=== PATIENT | female | born 2000 | race Caucasian/White ===

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

== ENCOUNTER 2022-03-12 13:36 | Emergency (ER) | payer OTHER, SELFPAY ==
[2022-03-12 14:02] VITALS: BP 124/67; PULSE 86; RESP 18; TEMP 36.5; O2SAT 100
--- NOTE | 2022-03-12 14:16 | ECG_ITS ---
Measurements Intervals [place] Rate: 94 P: 68 ND: 129 QRS: 34 QRSD: 82 T: 22 QT: 332 QTc: 417 Interpretive Statements SINUS RHYTHM RSR' IN V1 OR V2, PROBABLY NORMAL VARIANT BORDERLINE ST-T WAVE ABNORMALITY- INFERIOR LEADS BASELINE ARTIFACT- II, III, AVF BORDERLINE ECG Electronically Signed On 03-12-2022 18:23:38 CDT by Elliott Sen D.O.
[2022-03-12 14:42] LABS: Basophils Absolute Auto 0.1 K/mm3 (0.0-0.1); Basophils Percent Auto 0.5 % (0.2-1.2); Eosinophils Absolute Auto 0.2 K/mm3 (0-0.3); Eosinophils Percent Auto 1.9 % (0-4.4); Hematocrit 41.2 % (37.0-47.0); Hemoglobin 13.6 g/dL (12.0-15.0); Immature Granulocyte Absolute 0.02 K/mm3 (0.00-0.031); Immature Granulocyte Percent A 0.2 % (0-0.5); Lymphocytes Absolute Auto 2.58 K/mm3 (0.9-3.2); Mean Corpuscular Hemoglobin 28.9 pg (26-34); Mean Corpuscular Volume 87.7 fl (80-100); Mean Platelet Volume 10.1 fl (7.4-10.4); Monocytes Absolute Auto 1.1 K/mm3 (0.1-0.6); Monocytes Percent Auto 10.3 % (2.6-8.5); Neutrophils Absolute Auto 6.4 K/mm3 (1.3-6.7); Neutrophils Percent Auto 62.1 % (45.5-73.1); Platelet Count Result 302 k/mm3 (150-375); Red Cell Distribution Width 12.8 % (11.5-14.5); White Blood Count 10.3 K/mm3 (4.5-10.0)
--- NOTE | 2022-03-12 14:43 | ED.DIZZY ---
HPI - Dizziness General Chief Complaint: Dizziness <MIYA Amaya Last Filed: 03/12/22 16:35> Stated Complaint: dizzy <MIYA Amaya Last Filed: 03/12/22 16:35> Time Seen by Provider: 03/12/22 14:11 <MIYA mAaya Last Filed: 03/12/22 16:35> History of Present Illness HPI Narrative: Patient is a 21-year-old female with a history of eustachian tube dysfunction here for evaluation of dizziness over the past day. Patient states the dizziness is positional, and is worse when she turns her head. She also notes that she has had diffuse body aches, some ear fullness and discomfort, and also feels like her heart is racing. Denies chest pain, shortness of breath, syncope, fevers, chills. She does take oral contraceptives. She took a home COVID test that was negative. Notes that her symptoms were worse at work when she was working in the heat. <MIYA Amaya Last Filed: 03/12/22 16:35> Related Data Home Medications: Home Medications Medication Instructions Recorded Confirmed etonogestrel 68 mg subdermal 1 implant subdermal ONCE 08/26/21 02/03/22 implant (Nexplanon) <MIYA Amaya Last Filed: 03/12/22 16:35> Allergies/Adverse Reactions: Allergies Allergy/AdvReac Type Severity Reaction Status Date / Time No Known Allergies Allergy Verified 02/03/22 10:59 <MIYA Amaya Last Filed: 03/12/22 16:35> Review of Systems Review of Systems: Gen: Reports body aches. Denies fevers or chills Eyes: Reports ear pain. Denies eye pain or visual change ENT: Denies congestion Respiratory: Denies shortness of breath or cough CV: Denies chest pain or palpitations GI: Denies abdominal pain nausea, emesis or diarrhea : denies burning, urgency, frequency or hematuria Musculoskeletal: Denies back pain or muscle pain Neuro: Reports dizziness. Denies numbness, tingling, weakness or focal weakness Skin: Denies rash Except as documented, all other systems reviewed and negative <Lizbeth Mcpherson PA-C - Last Filed: 03/12/22 16:35> [facility] Past Medical History Medical History: Medical History Anemia <Lizbeth Mcpherson PA-C - Last Filed: 03/12/22 16:35> Social History Social History: Social History Smoking status: Never smoker Alcohol intake: never Substance use: never Substance use type: does not use Spiritual care concerns: No <Lizbeth Mcpherson PA-C - Last Filed: 03/12/22 16:35> Exam Narrative: APPEARANCE: Well appearing, no pain in distress, well-nourished. Head: Normocephalic and atraumatic. EYES: Fatiguable horizontal nystagmus. PERRLA/EOMI, conjunctivae clear NOSE: No nasal drainage EARS: External ear normal in appearance THROAT: Oropharynx is clear. Mucous membranes are moist. NECK: Supple. No adenopathy, no masses. RESPIRATORY: Airway patent, respirations nonlabored. Clear to auscultation bilaterally, no rales, rhonchi, wheezing. CARDIOVASCULAR: Tachycardic. Regular rhythm without murmurs, rubs, or gallops. ABDOMINAL: Normoactive bowel sounds. Soft, nontender, nondistended. No rebound tenderness or guarding. MUSCULOSKELETAL: Extremities are warm and well-perfused. Moves all extremities well. No edema. NEURO: Finger to nose normal. Negative [place]. Becomes symptomatic with position changes. Normal speech. No focal neurologic deficits. SKIN: Skin is warm and dry. No rashes. PSYCHIATRIC: Normal affect/mood. <Lizbeth Mcpherson PA-C - Last Filed: 03/12/22 16:35> Course [employer] ENGINEER/PA Physician Supervision I did not see this patient but the care plan was discussed with me, labs reviewed. I agree with the documentation as above <Daniel Lynch MD - Last Filed: 07/02/22 17:08> Vital Signs Vital signs: Vital Signs Temperatu
[2022-03-12 14:53] LABS: Alanine Aminotransferase 77 U/L (6-35); Albumin Level 4.6 g/dL (3.7-5.6); Alkaline Phosphatase 53 U/L (45-116); Anion Gap 5 mmol/L (8-16); Aspartate Amino Transferase 41 U/L (14-36); Bilirubin,Total 0.4 mg/dL (0.2-1.3); Blood Urea Nitrogen 11 mg/dL (8-21); Calcium 8.9 mg/dL (8.9-10.7); Carbon Dioxide 27 mmol/L (22-30); Chloride 104 mmol/L (98-107); Estimated CRCL calculation 92 ml/min; Estimated Glomerular Filt Rate > 60; Glucose 87 mg/dL (65-110); Potassium 4.1 mmol/L (3.4-5.0); Sodium 136 mmol/L (134-143)
[2022-03-12 15:18] LABS: SARS-CoV-2 RNA PCR Negative
[2022-03-12 15:52] VITALS: BP 103/78; PULSE 80; RESP 18; O2SAT 99
[2022-03-12] MEDS: ONDANSETRON HCL ODT 4 MG TABLET PO (16:11)
[2022-03-12] MEDS: MECLIZINE HCL 25 MG TABLET PO (16:11)
== END 2022-03-12 16:27 | disposition home or self-care (01) ==
PROVIDERS: Physician Assistant; Emergency Provider Emergency Medicine
DX: R42 Dizziness and giddiness (principal); Z20.822 Contact with and (suspected) exposure to COVID-19
CPT/HCPCS: 36415; 80053; 85025; 85380; 93005; 99283; A9270; C9803; U0003; U0005

== ENCOUNTER 2022-04-12 09:57 | Outpatient (CLI) | payer OTHER, SELFPAY | END 2022-04-12 09:58 | disposition home or self-care (01) | LOC: ANHAUDIO 09:59 | PROVIDERS: PCP Otolaryngology; Visit Provider Otolaryngology | DX: H93.13 Tinnitus, bilateral (principal); H91.93 Unspecified hearing loss, bilateral; H93.8X3 Other specified disorders of ear, bilateral | CPT/HCPCS: 92552; 92556; 92567 ==

== ENCOUNTER 2022-06-13 07:20 | Outpatient (CLI) | payer OTHER, SELFPAY ==
--- NOTE | ~2022-06-13 | CT_ITS ---
EXAMINATION: CT sinus wo con DATE: 06/13/2022 07:36 INDICATION: Sinusitis. Facial pressure. TECHNIQUE: Computed tomography (CT) of the paranasal sinuses was performed without intravenous contra st. The dose-length product was 305.77 mGy-cm. Automated exposure control and iterative reconstructio n technique were employed. COMPARISON: None FINDINGS: No significant mucosal thickening. No air-fluid levels. Leftward nasal septal deviation. Os tiomeatal units are patent. There is a right-sided serene bullosa. Mastoid air cells are pneumatized. IMPRESSION: 1. No significant sinus disease. Reviewed, dictated and finalized at location A.
== END 2022-06-13 07:21 | disposition home or self-care (01) ==
PROVIDERS: Visit Provider Otolaryngology
DX: H93.8X3 Other specified disorders of ear, bilateral (principal); J32.0 Chronic maxillary sinusitis; J32.9 Chronic sinusitis, unspecified; R44.8 Other symptoms and signs involving general sensations and perceptions
CPT/HCPCS: 70486

== ENCOUNTER 2024-12-24 09:56 | Outpatient (CLI) | payer MEDICAID, SELFPAY ==
--- OUTSIDE RECORDS SUMMARY | 2024-12-24 10:47 | XMS_ITS | Encounter Summary ---
Author Organization [facility] Address [address] [place] [id number] Care Team Providers Care Athletic Trainer Name Role Phone Eduin Land VENEER DRIER Primary Care Provider Unavail able Eduin Land VENEER DRIER Primary Care Provider Unavail able dEuin Land VENEER DRIER Primary Care Provider Unavail able Ayaz Velazquez MD Primary Care Provider [phone] Fede Wagner MD Primary Care Provider [phone] None, Provider MD Primary Care Provider Unavaila ble Encounter Details Date Type Department Care Team (Late st Contact Info) Description 01/09/2014 Abstract [facility] CONVERSION [id number] [place] [id number] , Generic Conversion, Social History Tobacco Use Types Packs/Day Years Used Date Smoking Tobacco: Never Assessed Comments Unknown Sex and Gender Information Value Date Recorded Sex Assigned at Not on file Legal Sex Female 8:11 PM CDT Gender Identity Not on file Sexual Orientation Not on file documented as of this encounter Plan of Treatment Not on file documented as of this encounter Visit Diagnoses Not on filedocumented in this encounter Additional Health Concerns Infection Onset Date Last Indicated Resolved Time COVID-19 Rule Out 07/22/2021 07/22/2021 07/22/2021 1:09 PM SPEED RUNNER COVID-19 Rule Out 07/29/2021 07/29/2021 07/29/2021 2:01 PM SPEED RUNNER COVID-19 Rule Out 08/16/2021 08/16/2021 08/16/2021 2:12 PM SPEED RUNNER COVID-19 Rule Out 09/19/2021 09/19/2021 09/19/2021 9:37 AM SPEED RUNNER COVID-19 Rule Out 09/20/2021 09/20/2021 09/21/2021 3:44 AM SPEED RUNNER COVID-19 Confirmed 09/20/2021 09/20/2021 2 12:34 AM SPEED RUNNER documented as of this encounter Care Teams Athletic Trainer Relationship Specialty Start Date End Date Eduin Land, VENEER DRIER PCP - General 04/03/15 05/02/21 Eduin Land, VENEER DRIER PCP - General 03/12/15 04/02/15 Eduin Land, VENEER DRIER PCP - General 02/26/15 03/11/15 Ayaz Velazquez MD [address] [place] [address] PCP - General PEDIATRICS 05/03/21 09/18/21 Fede Wagner MD [address] [place] [id number] PCP - General FAMILY PRACTICE 09/19/21 12/06/21 None, MD Bahman PCP - General 12/07/21 documented as of this encounter
--- OUTSIDE RECORDS SUMMARY | 2024-12-24 10:47 | XMS_ITS | Data Portability ---
Author Organization [facility] [place] [facility], [id number] Address [address] [place] [address] Assessment No assessment recorded. Plan of Treatment Reminders Order Date Submit Date Provider Last Modified By Organization Details Last Modified Time Details Appointments MH - INITIAL MANUFACTURING BUSINESS ANALYST 2024 10:15A Susan LÓPEZ PMHNP Not available Not available Not available ANNUAL- EST 15 2025 08:15A M VERONICA RODRÍGUEZ WHNP Not available Not available Not available Lab patrice wet prep 2024 025 toby [id number] Kayleigh Orta, [address], [place], [address], 12/04/2024 10:59:01 wet mount panel, vaginal fluid 2024 025 toby [id number] Kayleigh Orta, [address], [place], [address], 12/04/2024 10:59:01 Referral behaviora [facility] referral 2024 025 [email or web address] Not available 12/04/2024 10:59:01 gastroent erologist referral 2024 025 [facility], [address], [address], [place], [address], 12/04/2024 18:46:22 Procedures None recorded. Surgeries None recorded. Imaging None recorded. Medication Orders None recorded. Patient TargetsNo targets recorded. Patient InstructionsNo instructions recorded. Reason for Referral [place] Referral for Left lower quadrant pain Referring Physician: Veronica Rodríguez GAMES DEALER, Encounter Date: 12/04/2024 Behavioral Health Referral f or Anxiety Referring Physician: Veronica Rodríguez GAMES DEALER, Encounter Date: 12/04/2024 Results Created Date Observation Date Name Description Value Unit Range Abnormal Flag Note LastModifiedBy Organization Detail LastModifiedTime 12/05/1912/04/2024 wet mount panel , vagin al fluid Unknown Analyte <20% Not Available [id number] [place], [address], 12/04/2024 10:56:51 12/05/19 25 12/04/2024 wet mount panel , vagin al fluid Unknown Analyte negati ve Not Available [id number], [place], [address], 12/04/2024 10:56:51 12/05/19 25 12/04/2024 wet mount panel , vagin al fluid Unknown Analyte Negati ve Not Available [id number], [address], 12/04/2024 10:56:51 12/05/19 25 12/04/2024 wet mount panel , vagin al fluid Unknown Analyte Negati ve Not Available [id number], [address], 12/04/2024 10:56:51 12/05/19 25 12/04/2024 wet mount panel , vagin al fluid Unknown Analyte Negati ve Not Available [id number], [address], 12/04/2024 10:56:51 12/05/19 25 12/04/2024 wet mount panel , vagin al fluid Unknown Analyte Rare Not Available [address], [place], [address], 12/04/2024 10:56:51 12/05/19 25 12/04/2024 wet mount panel , vagin al fluid Unknown Analyte Abunda nt Rods Not Available [address], [place], [address], 12/04/2024 10:56:51 12/05/19 25 12/04/2024 wet mount panel , vagin al fluid Unknown Analyte Negati ve Not Available [address] [place], [address], 12/04/2024 10:56:51 12/05/19 25 12/04/2024 wet mount panel , vagin al fluid Unknown Analyte Negati ve Not Available [address] [place] [place], [address], 12/04/2024 10:56:51 12/05/19 25 12/04/2024 patrice wet prep Hyphae Absent Not Available [address], [place], [address], 12/04/2024 10:56:50 Result Notes None recorded. Problems Name Problem SNOMED Code Status Onset Date Resolution Date Notes Provider Name and Address Organization Details Recorded Time Transfusio n of blood product Active 12/27 w/ oophorecto silvia Diggsya Michaela [facility] 12:20:29 Anxiety 11619077 Active 2024 Suzi mar [facility] 15:33:23 Left lower quadrant pain 217960914 Active 2024 VERONICA RODRIGUEZ [address], [place], [place], [address], [facility] 5 10:00:57 Left lower quadrant pain 344159494 Active 2024 VERONICA RODRIGUEZ [address], [place], [place], [address], [facility] 5 10:01:12 Vaginal discharge 090758505 Active 2024 VERONICA RODRIGUEZ [address], [place], [place], [address], [facility] 10:56:45 Problem Notes None recorded. Procedures Surgical History Date Name Laterality Status Provider Name and Address Organization Details Recorded Time 06/07/20 23 Date of Last Pap Smear completed Suzi Hope [facility] 12/02/2024 15:35:44 04/11/20 22 Removal of adenoids completed Suzi Hope [facility] 12/02/2024 15:40:44 04/11/20 22 tonsillectomy completed Suzi Hope [facility] 12/02/2024 15:41:37 09/11/19 22 extraction of wisdom tooth completed Suzi Hope [facility] 12/02/2024 15:42:01 01/03/20 18 Oophorectomy completed Herlinda Jennings [facility] 12/03/2024 12:22:23 [facility] 12/04/2024 09:13:06 Oophorectomy completed Suzi Hope [facility] 12/04/2024 09:13:06 Ovarian Cystectomy completed Suzi Hope [facility] 12/04/2024 09:13:06 Imaging Results None recorded. Procedure Notes None recorded. Medical Equipment None Reported. Allergies No known drug allergies Medications Name Sig Start Date Stop Date Status Note LastModified by Organization Details LastModified Time fluoxetine 10 mg capsule Take 1 capsule every day by oral route. active Not Available Not Available No t Available Probiotic active Not Available Not Jennifer ilable Not Available Vitals Date Recorded Body height Body mass index (BMI) Body weight Systolic blood pressure Diastolic blood pressure Provider Name and Address Organization Details Last Updated DateTime 12/04/2024 167.64 cm 17.6 kg/m2 87317.57 g 102 mm[Hg] 62 mm[Hg] Suzi Hope [facility] 09:17:02 Social History Question Answer Notes LastModified by Organizat ion Details LastModified Time Tobacco Smoking Status Never Smoker Suzi Hope [facility] [place] [place] [facility] 12/02/2024 15:40:06 Do You Have An Advance Directive? No [email or web address] Information not available 12/04/2024 What Is Your Level Of Alcohol Consumption? Occasional [email or web address] Information not available 12/02/2024 How Many Times Per Week Do You Consume Alcohol? 1-2 Times Per Week [email or web address] Information not available 12/02/2024 What Is Your Level Of Caffeine Consumption? Moderate [email or web address] Information not available 12/04/2024 Are You Currently Employed? No [email or web address] Information not available 12/04/2024 What Type Of Diet Are You Following? SPECIFIC [email or web address] Information not available 12/04/2024 What Is Your Relationship Status? Single [email or web address] Information not available 12/02/2024 Do You Use Any Illicit Or Recreational Drugs? Yes Marijuanna [email or web address] Information not available 12/02/2024 Sex: Unknown Functional Status None recorded. Mental Status None recorded. Family History Relationship Description Onset Age of this Age Resolved Age Notes LastModified by Organization Details LastModified Time Paternal Grandfather Malignant tumor of esophagus [email or web address] Not available 2024 09:12:53 Unspecified Relation No current problems or disability [email or web address] Not available 12/04 09:12:53 Medical History Condition Response Psych- Anxiety Disorder Y Hematology- Anemia Y Psych- Depression Y GI- Irritable Bowel Syndrome Y Gynecological History Statement/Question Response Flow Moderate Frequency of Cycle (Q days) 6 Sexually Active? Y Menses Monthly Y Current Control Method: None Duration of Flow (days) 4-5 Date of Last Pap Smear 06/07/2023 Age at Menarche 13 Current Control Method None Obstetrics History GPAL:G 0 P 0 0 0 0 Type Value Multiple Births 0 Full Term 0 Induced 0 Spontaneous 0 Premature 0 Living 0 Ectopics 0 Total 0 Immunizations Vaccine Type Date Status Note Provider Nam e and Address Organization Details Recorded Time Tdap 09/11/2013 [facility] 12/02/2024 15:34:08 Past Encounters Encounter ID Performer Location Encounter Start Date Encounter Closed Date Diagnosis/Indication Diagnosis SNOMED-CT Code Diagnosis ICD10 Code Diagnosis Note [id number] VERONICA RODRIGUEZ [id number] [facility] [place] [address] [facility] [place] [address] 12/04/2024 09:04:42 12/04/2024 10:05:26 Gynecologic examination 91641204 Z01.411 -f/u 1 year for annual SOCIAL SERVICES DIRECTOR exam Anxiety 89265696 F41.9 -f/u with Marixa Left lower quadrant pain 022614201 R10.32 K59.00 R19.7 R19.5 -we will send referral for GI specialist Vaginal discharge 502034 006 N89.8 -normal wet mount/patrice Depression screening 171 352790 Z13.31 -score 5 Health Concerns Section Related Observation LastModified by Organization Detai ls LastModified Time None Recorded Concern Status LastModified by Organization Details LastModified Time None Recorded Advance Directives Directive N: Payers Encounter Date Sequence Insurance Name Policy Number Policy Meyer Covered Member ID Meyer Member ID Guarantor Name 12/04/2024 1 [place] [facility] Sharamine Nagy [id number] Sharmaine Nagy Notes Date Note Type Note Provider Name and Address Organization Details Recorded Time 12/04/2024 text/html [facility] Annual Well-Women Visit Age 21-29Reported bypatient.Current Medical History:reviewed and documented Relevant Family History:no family history of breast cancer Last Pap smear:up-to-date Contraceptive Method:satisfied with current method; contraceptive method: none; is in same sex relationship Sexually Active:Yes: same partner STI Screen:declines STI testing Menstrual cycle:usually has a 35+ day cycle. did have a 50 day cycle last fall. feels like last 2 cycles have been more regular. Vagina:has noticed more vaginal discharge-denies itching, irritation, or foul odor. would like swab to check for bv/yeast. declines std testing.Notes:c/o 8mo of abdominal pain-mostly LLQ/LUQ. states she had episode of 5 days of vomiting 8mo ago-thought it was because she was eating too much fiber. switched diet to pescetarian diet but has not noticed any change in abd pain. hx of diarrhea/constipati on-denies blood in stool but has noticed mucus. also c/o unexplained weight loss of 15-25lbs in the last 8mo. called GI office but was told she needed a referral. hx of anxiety/depression- has not seen anyone for counseling and has never taken any medication for either. -sasha RODRÍGUEZ [facility] [address], [place], [address], [facility] 12/04/2024 11:00:02 OBGyn Episode No OBEpisode recorded.
--- OUTSIDE RECORDS SUMMARY | 2024-12-24 10:47 | XMS_ITS | Clinical Summary ---
Author Organization [facility] Address [facility] [place] [address] Care Team Providers Care Machine Shop Worker Name Role Phone None, Provider MD Primary Care Provider Unavaila ble Allergies No known active allergies Medications cephALEXin 500 MG capsule 2 Active triamcinolone 0.1 % ointment 2 Active fluticasone propionate 50 MCG/ACT nasal sprayIndications: Right ear pain 2 sprays by Each Nostril route daily. 16 g 2 Active Multiple Vitamins-Minerals (HM MULTIVITAMIN ADULT GUMMY OR) Acti ve Active Problems No known active problems Social History Tobacco Use Types Packs/Day Years Used Date Smoking Tobacco: Never Smokeless Tobacco: Never Alcohol Use Standard Drinks/Week Comments Never 0 (1 standard drink = 0.6 oz pur e alcohol) Comments Unknown Sex and Gender Information Value Date Recorded Sex Assigned at Not on file Legal Sex Female 8:11 PM CDT Gender Identity Not on file Sexual Orientation Not on file Last Filed Vital Signs Vital Sign Reading Time Taken Comments Blood Pressure 125/77 05/05/2022 11:52 AM CDT Pulse 84 05/05/2022 11:52 AM CDT Temperature 36.9 C (98.5 F) 05/05/2022 10:44 AM CDT Respiratory Rate 16 05/05/2022 11:52 AM CDT Oxygen Saturation 100% 05/05/2022 10:44 AM CDT Inhaled Oxygen Concentration - - Weight 61.2 kg (135 lb) 05/05/2022 10:44 AM CDT Height 167.6 cm (5' 6 ) 05/05/2022 10:44 AM CDT Body Mass Index 21.79 05/05/2022 10:44 AM CDT Plan of Treatment Health Maintenance Due Date Last Done Comments Cervical Cancer Screening Pap Smear (Age 21 to 29) Every 3 Years 2002 Cervical Cancer Screening 2002 Annual Physical 2005 Meningococcal B Vaccine (1 of 2 - Standard) 2018 Hepatitis C 2020 COVID-19 Vaccine (3 - season) 2024 07/07/2021, 06/16/2021 DTaP, Tdap and Td Vaccines (7 - Td or Tdap) 06/07/2024 06/07/2014, 05/30/2007, 09/22/2003, Additional history exists Hepatitis B Vaccines Completed 01/03/2003, 01/03/2003, 2002, Additional history exists Pneumococcal Vaccine: Pediatrics (0 to 5 Years) and At-Risk Patients (6 to 49 Years) Aged Out 01/03/2003, 2002 No longer eligibl e based on patient's age to complete this topic HPV Vaccines Completed 10/11/2018, 03/25/2015 Meningococcal Vaccine Completed 10/11/2018, 014 RSV Immunizations Under 20 Months Aged Out No longer eligible based on patient's age to complete this topic Insurance [employer] Care Teams Machine Shop Worker Relationship Specialty Start Date End Date None, Provider, PCP - General 12/07/21
--- OUTSIDE RECORDS SUMMARY | 2024-12-24 10:47 | XMS_ITS | Clinical Summary ---
Author Organization [facility] Address [address] [place] [address] Care Team Providers Care Medical Manager Name Role Phone Haroon Holcomb MD Primary Care Provider Unavail able Source Comments [facility],non-owned Affiliates and Associated Physician Practices is amultiple site organization consisting of ambulatory clinics and hospital sitesin [place], [place], [place] and [place]. This disclosure is being madepursuant to the Care Everywhere program and may not contain all information available regarding this patient. Last updated 18.[facility] [employer] Allergies No known active allergies Medications * Be aware that medications may not be up to date on this document. Alwaysverify current medications with the patient. acetaminophen (TYLENOL) 500 MG tablet Take 1 tablet by mouth every 4 hours as needed for Fever or Pain Maximum allowable Acetaminophen amount = 4 Grams (4000 mg) / 24 hours. 30 tablet 3 8 Active IRON, FERROUS GLUCONATE, PO Active Active Problems Patient Care Coordination No te Formatting of this note migh t be different from the original. 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 Likely incidental finding and not related to anemia or back pain. HCG and AFP tumor markers within normal limits. Likely a benign lesion, but excision and biopsy still indicated to further characterize the mass. Plan: - Surgery consulted, will excise mass 01/03 Absolute anemia 12/27/2017 Assessment & Plan (12/30/2017 12:38 PM CDT): 17 y.o. female with no significant past medical history who presented with 2 week history of back pain and recent fatigue, dizziness, and palpitations found to have normocytic anemia admitted for further workup. The differential diagnosis includes microcytic anemia which is less likely given normocytic (MCV: 88.4) vs chronic bleeding which is less likely because again, the MCV is normal. Given normal LDH and bilirubin, hemolytic process is also less likely. Plan: FEN/GI: - Regular diet - Discontinue mIVF Heme/Onc: - Continue Fe 325mg TID - See Ovarian Teratoma - CBC and retic in AM - ferritin, Last - Should Hb drop further in AM, will transfuse 1 unit to assure adequate hemoglobin prior to surgery scheduled for 01/03 CV - Currently hemodynamically stable - If SBP>143, reassess for pain, give Isradipine - If SBP<98, assess, fluid give bolus Resp: - Stable on room air Nephro: - Admission SCr: 0.66 - Continue to monitor Endo: - No concerns Pain/Neuro: - Ibuprofen q6h PRN for pain. Oxycodone PRN for break through pain - Per Neurology, will titrate gabapentin up to 100mg BID today, up to TID tomorrow. - Serum lipase and UA to assess for other sources of pain Assessment & Plan (12/29/2017 1:35 PM CDT): Assessment: Jeri Nagy is a 17 y.o. female with no significant past medical history who presented with 2 week history of back pain and recent fatigue, dizziness, and palpitations found to have normocytic anemia admitted for further workup. The differential diagnosis includes microcytic anemia which is less likely given normocytic (MCV: 88.4) vs chronic bleeding which is less likely because again, the MCV is normal. Given normal LDH and bilirubin, hemolytic process is also less likely. Additionally she was found to have a mass on the left adnexa likely consistent with teratoma. Plan: FEN/GI: - Regular diet Heme/Onc: - Fe 325mg TID - Obtained tumor markers (AFP and Beta-HCG) - MRI pelvis confirms presence of ovarian teratoma - Surgery consulted for outpatient excision ID: Afebrile CV - Currently hemodynamically stable - If SBP>143, reassess for pain, give Isradipine - If SBP<98, assess, give bolus Resp: - Stable on room air Nephro: - Admission SCr: 0.66 - Continue to monitor Endo: - No concerns Pain/Neuro: - For back pain, give Tylenol and alternate with Ibuprofen - If pain is continued, may give Oxycodone 5mg PRN Assessment & Plan (12/28/2017 3:37 PM CDT): Assessment: Jeri Nagy is a 17 y.o. female with no significant past medical history who presented with 2 week history of back pain and recent fatigue, dizziness, and palpitations found to have normocytic anemia admitted for further workup. The differential diagnosis includes microcytic anemia which is less likely given normocytic (MCV: 88.4) vs chronic bleeding which is less likely because again, the MCV is normal. Given normal LDH and bilirubin, hemolytic process is also less likely. Additionally she was found to have a mass on the left adnexa likely consistent with teratoma. Plan: FEN/GI: - Regular diet Heme/Onc: - Received 2 units of pRBC's yesterday - CBC in am - Fe 325mg TID - Obtained tumor markers (AFP and Beta-HCG) - MRI lumbar spine and pelvis in afternoon ID: Afebrile CV - Currently hemodynamically stable - If SBP>143, reassess for pain, give Isradipine - If SBP<98, assess, give bolus Resp: - Stable on room air Nephro: - Admission SCr: 0.66 - Continue to monitor Endo: - No concerns Pain/Neuro: - For back pain, consider Oxycodone 5mg PRN or Flexeril Dizzy Social History Tobacco Use Types Packs/Day Years Used Date Smoking Tobacco: Never Smokeless Tobacco: Never Alcohol Use Standard Drinks/Week Comments No 0 (1 standard drink = 0.6 oz pur e alcohol) Comments No Sex and Gender Information Value Date Recorded Sex Assigned at Not on file Legal Sex Female 10:34 PM CHAPERON Gender Identity Not on file Sexual Orientation Not on file Last Filed Vital Signs Vital Sign Reading Time Taken Comments Blood Pressure 107/57 08/09/2018 9:50 AM CHAPERON Pulse 64 08/09/2018 9:50 AM CHAPERON Temperature 36.8 C (98.3 F) 08/09/2018 9:50 AM CHAPERON Respiratory Rate 16 08/09/2018 9:50 AM CHAPERON Oxygen Saturation 100% 08/09/2018 9:50 AM CHAPERON ra Inhaled Oxygen Concentration - - Weight 56.1 kg (123 lb 10.9 oz) 08/09/2018 9:50 AM CHAPERON Height 166.4 cm (5' 5.51 ) 08/09/2018 9:50 AM CS T Body Mass Index 20.26 08/09/2018 9:50 AM CHAPERON Plan of Treatment Health Maintenance Due Date Last Done Comments PAP SMEAR 2002 HIV SCREENING 2017 HPV VACCINE (1 - 3-dose series) 2017 MENINGOCOCCAL (Group B) VACC INE SHARED DECISION-MAKING (1 of 2 - Standard) 2018 HEPATITIS C SCREENING 06/05/2020 CHLAMYDIA/GONORRHEA SCREENING 03/03/2021 03/03/2020 DTAP/TDAP/TD VACCINES (1 - Tdap) 2021 HEPATITIS B VACCINE (1 of 3 - 19+ 3-dose series) 2021 COVID-19 VACCINE (1 - 2023-2 5 season) 2024 DEPRESSION SCREENING 09/11/2024 INFLUENZA VACCINE (Season Ended) 2025 ZOSTER VACCINE (1 of 2) 2052 HIB VACCINE Aged Out No longer eligi ble based on patient's age to complete this topic MENINGOCOCCAL GROUPS A/C/Y/W VACCINE Aged Out No longer eligible b ased on patient's age to complete this topic PNEUMOCOCCAL VACCINE Aged Out No long er eligible based on patient's age to complete this topic Insurance [facility] Advance Directives * Full Code (Latest Code Status on File) Date Activated Date Inactivated Comments 01/03/2018 4:34 PM 01/05/2018 4:01 PM * Full Code Date Activated Date Inactivated Comments 12/27/2017 6:00 PM 12/31/2017 2:19 PM Care Teams Medical Manager Relationship Specialty Start Date End Date Haroon Holcomb MD NEED INFORMATION UPDATED PCP - General 05/09/22
[2024-12-24 10:52] LABS: Hematocrit 43.2 % (37.0-47.0); Hemoglobin 14.3 g/dL (12.0-15.0); Mean Corpuscular HGB Conc 33.1 g/dl (32-36); Mean Corpuscular Hemoglobin 29.8 pg (26-34); Platelet Count Result 403 k/mm3 (150-375); Red Cell Distribution Width 12.3 % (11.5-14.5); White Blood Count 7.3 K/mm3 (4.5-10.0)
[2024-12-24 11:11] LABS: Alanine Aminotransferase 24 U/L (6-35); Albumin Level 5.1 g/dL (3.5-5.1); Alkaline Phosphatase 39 U/L (38-126); Anion Gap 12 mmol/L (4-12); Aspartate Amino Transferase 25 U/L (14-36); Bilirubin,Total 0.6 mg/dL (0.2-1.3); Blood Urea Nitrogen 17 mg/dL (7-17); CRP < 0.5 mg/dL (<1.0); Calcium 9.8 mg/dL (8.4-10.2); Carbon Dioxide 31 mmol/L (22-30); Chloride 98 mmol/L (98-107); Estimated Glomerular Filt Rate > 60; Glucose 85 mg/dL (65-110); Potassium 3.7 mmol/L (3.4-5.0); Sodium 141 mmol/L (137-145)
[2024-12-24 11:48] LABS: Thyroid Stimulating Hormone Reflex 0.563 uIU/mL (0.465-4.68)
[2024-12-24 14:00] LABS: Erythrocyte Sedimentation Rate 5 mm/hr (0-20)
[2024-12-26 15:19] LABS: Immunoglobulin A 137 mg/dL (47-310); TTG IGA AB <1.0 U/mL
== END 2024-12-24 09:57 | disposition home or self-care (01) ==
PROVIDERS: Visit Provider Nurse Practitioner
DX: K58.2 Mixed irritable bowel syndrome (principal); K92.89 Other specified diseases of the digestive system; R63.4 Abnormal weight loss
CPT/HCPCS: 36415; 80053; 82784; 83516; 84443; 85027; 85652; 86140

== ENCOUNTER 2024-12-25 07:32 | Outpatient (NON) | payer MEDICAID, SELFPAY ==
--- OUTSIDE RECORDS SUMMARY | 2024-12-25 07:34 | XMS_ITS | Clinical Summary ---
Author Organization [facility] Address [address] [address] Care Team Providers Care Ink Grinder Name Role Phone Haroon Holcomb MD Primary Care Provider Unavail able Source Comments [facility],non-owned Affiliates and Associated Physician Practices is amultiple site organization consisting of ambulatory clinics and hospital sitesin [place], [place], [place] and [place]. This disclosure is being madepursuant to the Care Everywhere program and may not contain all information available regarding this patient. Last updated 18.[facility] [email or web address] Allergies No known active allergies Medications * [...] be different from the original. Local Lab- [facility] Fax- [phone] Problem Noted Date Diagnosed Date Back pain [...] on file Legal Sex Female 10:34 PM SOLAR DESIGNER Gender Identity Not on file Sexual Orientation Not on file Last Filed Vital Signs Vital Sign Reading Time Taken Comments Blood Pressure 107/57 08/09/2018 9:50 AM SOLAR DESIGNER Pulse 64 08/09/2018 9:50 AM SOLAR DESIGNER Temperature 36.8 C (98.3 F) 08/09/2018 9:50 AM SOLAR DESIGNER Respiratory Rate 16 08/09/2018 9:50 AM SOLAR DESIGNER Oxygen Saturation 100% 08/09/2018 9:50 AM SOLAR DESIGNER ra Inhaled Oxygen Concentration - - Weight 56.1 kg (123 lb 10.9 oz) 08/09/2018 9:50 AM SOLAR DESIGNER Height 166.4 cm (5' 5.51 ) 08/09/2018 9:50 AM CS T Body Mass Index 20.26 08/09/2018 9:50 AM SOLAR DESIGNER Plan of Treatment Health Maintenance Due Date [...] patient's age to complete this topic Insurance [facility] Advance Directives * Full Code (Latest Code Status on File) Date Activated Date Inactivated Comments 01/03/2018 4:34 PM 01/05/2018 4:01 PM * Full Code Date Activated Date Inactivated Comments 12/27/2017 6:00 PM 12/31/2017 2:19 PM Care Teams Ink Grinder Relationship Specialty Start Date End Date Haroon Holcomb MD NEED INFORMATION UPDATED PCP - General 05/09/22
--- OUTSIDE RECORDS SUMMARY | 2024-12-25 07:34 | XMS_ITS | Encounter Summary ---
Author Organization [facility] Address [address] [place] [address] Care Team Providers Care Customs House Broker Name Role Phone Eduin Land CLAMP FORKLIFT OPERATOR Primary Care Provider Unavail able Eduin Land CLAMP FORKLIFT OPERATOR Primary Care Provider Unavail able Eduin Land CLAMP FORKLIFT OPERATOR Primary Care Provider Unavail able Ayaz Velazquez MD Primary Care Provider [phone] Fede Wagner MD Primary Care Provider [phone] None, Provider MD Primary Care Provider Unavaila ble Encounter Details Date Type Department Care Team (Late st Contact Info) Description 01/09/2014 Abstract [facility] CONVERSION [id number] [id number] , Generic Conversion, Social History Tobacco Use [...] Rule Out 07/22/2021 07/22/2021 07/22/2021 1:09 PM EAR MOLD LABORATORY TECHNICIAN COVID-19 Rule Out 07/29/2021 07/29/2021 07/29/2021 2:01 PM EAR MOLD LABORATORY TECHNICIAN COVID-19 Rule Out 08/16/2021 08/16/2021 08/16/2021 2:12 PM EAR MOLD LABORATORY TECHNICIAN COVID-19 Rule Out 09/19/2021 09/19/2021 09/19/2021 9:37 AM EAR MOLD LABORATORY TECHNICIAN COVID-19 Rule Out 09/20/2021 09/20/2021 09/21/2021 3:44 AM EAR MOLD LABORATORY TECHNICIAN COVID-19 Confirmed 09/20/2021 09/20/2021 2 12:34 AM EAR MOLD LABORATORY TECHNICIAN documented as of this encounter Care Teams Customs House Broker Relationship Specialty Start Date End Date Eduin Land, CLAMP FORKLIFT OPERATOR PCP - General 04/03/15 05/02/21 Eduin Land, CLAMP FORKLIFT OPERATOR PCP - General 03/12/15 04/02/15 Eduin Land, CLAMP FORKLIFT OPERATOR PCP - General 02/26/15 03/11/15 Ayaz Velazquez MD [address] [place] [address] PCP - General PEDIATRICS 05/03/21 09/18/21 Fede Wagner MD [address] [place] [id number] PCP - General FAMILY PRACTICE 09/19/21 12/06/21 None, MD Bahman PCP - General 12/07/21 documented as of this encounter
--- OUTSIDE RECORDS SUMMARY | 2024-12-25 07:35 | XMS_ITS | Clinical Summary ---
Author Organization [facility] Address [address] [facility] [place] [address] Care Team Providers Care Plug And Mold Finisher Name Role Phone None, Provider MD Primary [...] complete this topic Insurance [employer] Care Teams Plug And Mold Finisher Relationship Specialty Start Date End Date None, Provider, PCP - General 12/07/21
[2024-12-29 16:04] LABS: Calprotectin, Stool 17 mcg/g
[2025-01-01 03:18] LABS: Pancreatic Elastase, Stool >800 mcg/g (>200)
== END 2024-12-25 07:33 | disposition home or self-care (01) ==
LOC: ANHLAB 07:32
PROVIDERS: Visit Provider Nurse Practitioner
DX: K58.2 Mixed irritable bowel syndrome (principal); K92.89 Other specified diseases of the digestive system; R10.9 Unspecified abdominal pain; R63.4 Abnormal weight loss
CPT/HCPCS: 82653; 83993; 87045; 87269; 87427; 87449

== ENCOUNTER 2025-01-07 09:48 | Outpatient (CLI) | payer MEDICAID, SELFPAY ==
[2025-01-07 10:21] LABS: Add Urine Microscopic? NO; Appearance Urine Clear (Clear); Bilirubin Urine Negative (Negative); Blood Urine Negative (Negative); Color Urine Yellow (Yellow); Glucose Urine UA Negative (Negative); Ketones Urine Negative (Negative); Leukocyte Esterase Ur Negative LEU/UL (Negative); Nitrate Urine Negative (Negative); Protein Urine Negative (Negative); Specific Grav Ur 1.008 (1.001-1.035); Urobilinogen Urine 0.2 mg/dL (<2.0); pH Urine 7.5 (5.0-9.0)
--- OUTSIDE RECORDS SUMMARY | 2025-01-07 10:55 | XMS_ITS | Clinical Summary ---
Author Organization [facility] Address [address] [place] [address] Care Team Providers Care Tier Lift Operator Name Role Phone Haroon Holcomb MD Primary Care Provider Unavail able Source Comments [facility],non-owned Affiliates and Associated Physician Practices is amultiple site organization consisting of ambulatory clinics and hospital sitesin [place], [place], [place] and [place]. This disclosure is being madepursuant to the Care Everywhere program and may not contain all information available regarding this patient. Last updated 18.[facility] Location Allergies No known active allergies Medications * [...] be different from the original. Local Lab- [facility] Fax- [phone] Problem Noted Date Diagnosed Date Back pain [...] on file Legal Sex Female 10:34 PM INSURANCE SALES AGENT Gender Identity Not on file Sexual Orientation Not on file Last Filed Vital Signs Vital Sign Reading Time Taken Comments Blood Pressure 107/57 08/09/2018 9:50 AM INSURANCE SALES AGENT Pulse 64 08/09/2018 9:50 AM INSURANCE SALES AGENT Temperature 36.8 C (98.3 F) 08/09/2018 9:50 AM INSURANCE SALES AGENT Respiratory Rate 16 08/09/2018 9:50 AM INSURANCE SALES AGENT Oxygen Saturation 100% 08/09/2018 9:50 AM INSURANCE SALES AGENT ra Inhaled Oxygen Concentration - - Weight 56.1 kg (123 lb 10.9 oz) 08/09/2018 9:50 AM INSURANCE SALES AGENT Height 166.4 cm (5' 5.51 ) 08/09/2018 9:50 AM CS T Body Mass Index 20.26 08/09/2018 9:50 AM INSURANCE SALES AGENT Plan of Treatment Health Maintenance Due Date [...] patient's age to complete this topic Insurance [facility] Advance Directives * Full Code (Latest Code Status on File) Date Activated Date Inactivated Comments 01/03/2018 4:34 PM 01/05/2018 4:01 PM * Full Code Date Activated Date Inactivated Comments 12/27/2017 6:00 PM 12/31/2017 2:19 PM Care Teams Tier Lift Operator Relationship Specialty Start Date End Date Haroon Holcomb MD NEED INFORMATION UPDATED PCP - General 05/09/22
--- OUTSIDE RECORDS SUMMARY | 2025-01-07 10:56 | XMS_ITS | Clinical Summary ---
Author Organization [facility] Address [facility]ly [facility] [place] [address] Care Team Providers Care Railroad Track Inspector Name Role Phone None, Provider MD Primary [...] complete this topic Insurance [employer] Care Teams Railroad Track Inspector Relationship Specialty Start Date End Date None, Provider, PCP - General 12/07/21
--- OUTSIDE RECORDS SUMMARY | 2025-01-07 10:56 | XMS_ITS | Encounter Summary ---
Author Organization [facility] Address [address] [place] [address] Care Team Providers Care Photographic Processor Name Role Phone Eduin Land BISQUE GRADER Primary Care Provider Unavail able Eduin Land BISQUE GRADER Primary Care Provider Unavail able Eduin Land BISQUE GRADER Primary Care Provider Unavail able Ayaz Velazquez MD Primary Care Provider [phone] Fede Wagner MD Primary Care Provider [phone] None, Provider MD Primary Care Provider Unavaila ble Encounter Details Date Type Department Care Team (Late st Contact Info) Description 01/09/2014 Abstract [facility] CONVERSION [id number] [id number] , Generic Conversion, Social History Tobacco Use [...] Rule Out 07/22/2021 07/22/2021 07/22/2021 1:09 PM PROFESSIONAL ATHLETE COVID-19 Rule Out 07/29/2021 07/29/2021 07/29/2021 2:01 PM PROFESSIONAL ATHLETE COVID-19 Rule Out 08/16/2021 08/16/2021 08/16/2021 2:12 PM PROFESSIONAL ATHLETE COVID-19 Rule Out 09/19/2021 09/19/2021 09/19/2021 9:37 AM PROFESSIONAL ATHLETE COVID-19 Rule Out 09/20/2021 09/20/2021 09/21/2021 3:44 AM PROFESSIONAL ATHLETE COVID-19 Confirmed 09/20/2021 09/20/2021 2 12:34 AM PROFESSIONAL ATHLETE documented as of this encounter Care Teams Photographic Processor Relationship Specialty Start Date End Date Eduin Land, BISQUE GRADER PCP - General 04/03/15 05/02/21 Eduin Land, BISQUE GRADER PCP - General 03/12/15 04/02/15 Eduin Land, BISQUE GRADER PCP - General 02/26/15 03/11/15 Ayaz Velazquez MD [address] [place] [address] PCP - General PEDIATRICS 05/03/21 09/18/21 Fede Wagner MD [address] [place] [id number] PCP - General FAMILY PRACTICE 09/19/21 12/06/21 None, MD Bahman PCP - General 12/07/21 documented as of this encounter
== END 2025-01-07 09:49 | disposition home or self-care (01) ==
LOC: ANHLAB 09:49
PROVIDERS: Visit Provider Nurse Practitioner
DX: R10.9 Unspecified abdominal pain (principal); R63.4 Abnormal weight loss
CPT/HCPCS: 81003

== ENCOUNTER 2025-02-12 08:08 | Outpatient (CLI) | payer MEDICAID, SELFPAY ==
--- NOTE | ~2025-02-12 | CT_ITS ---
CT of the Abdomen and Pelvis: Indication: Abdominal pain Technique: 2.5 mm axial scans were obtained through the abdomen and pelvis following intravenous adm inistration of 100 cc of Omnipaque 350. Dose reduction technique was used on this scan by utilizing a utomated exposure control and iterative reconstruction technique. The dose-length product (DLP) was 1 81.76 mGy-cm. Findings: Scans through the lung bases are unremarkable. The liver, spleen, pancreas, gallbladder, adrenals and kidneys are within normal limits. No evidence of aortic aneurysm. No lymphadenopathy. No bowel obstruction or bowel wall thickening. There is no evidence to suggest acute appendicitis. Images through the pelvis were performed. Urinary bladder unremarkable. No pelvic mass seen. No ascit es. Impression: No significant abnormalities seen. Reviewed, dictated and finalized at location . Impression: No significant abnormalities seen.
--- OUTSIDE RECORDS SUMMARY | 2025-02-12 08:11 | XMS_ITS | Clinical Summary ---
Author Organization [facility] Address [address] [place] [address] Care Team Providers Care Diver Helper Name Role Phone Haroon Holcomb MD Primary Care Provider Unavail able Source Comments [facility],non-owned Affiliates and Associated Physician Practices is amultiple site organization consisting of ambulatory clinics and hospital sitesin [place], [place], [place] and [place]. This disclosure is being madepursuant to the Care Everywhere program and may not contain all information available regarding this patient. Last updated 18.[facility] [employer] Allergies No known active allergies Medications * [...] be different from the original. Local Lab- [facility] Fax- [phone] Problem Noted Date Diagnosed Date Back pain [...] on file Legal Sex Female 10:34 PM ANIMAL PATHOLOGY TEACHER Gender Identity Not on file Sexual Orientation Not on file Last Filed Vital Signs Vital Sign Reading Time Taken Comments Blood Pressure 107/57 08/09/2018 9:50 AM ANIMAL PATHOLOGY TEACHER Pulse 64 08/09/2018 9:50 AM ANIMAL PATHOLOGY TEACHER Temperature 36.8 C (98.3 F) 08/09/2018 9:50 AM ANIMAL PATHOLOGY TEACHER Respiratory Rate 16 08/09/2018 9:50 AM ANIMAL PATHOLOGY TEACHER Oxygen Saturation 100% 08/09/2018 9:50 AM ANIMAL PATHOLOGY TEACHER ra Inhaled Oxygen Concentration - - Weight 56.1 kg (123 lb 10.9 oz) 08/09/2018 9:50 AM ANIMAL PATHOLOGY TEACHER Height 166.4 cm (5' 5.51) 08/09/2018 9:50 AM CS T Body Mass Index 20.26 08/09/2018 9:50 AM ANIMAL PATHOLOGY TEACHER Plan of Treatment Health Maintenance Due Date [...] patient's age to complete this topic Insurance [facility] Advance Directives * Full Code (Latest Code Status on File) Date Activated Date Inactivated Comments 01/03/2018 4:34 PM 01/05/2018 4:01 PM * Full Code Date Activated Date Inactivated Comments 12/27/2017 6:00 PM 12/31/2017 2:19 PM Care Teams Diver Helper Relationship Specialty Start Date End Date Haroon Holcomb MD NEED INFORMATION UPDATED PCP - General 05/09/22
== END 2025-02-12 08:09 | disposition home or self-care (01) ==
PROVIDERS: Visit Provider Nurse Practitioner
DX: K92.89 Other specified diseases of the digestive system (principal)
CPT/HCPCS: 74177; Q9967

== ENCOUNTER 2025-03-03 11:11 | Emergency (ER) | payer OTHER, SELFPAY ==
--- NOTE | ~2025-03-03 | XR_ITS ---
EXAM/PROCEDURE: XR chest 2V - 03/03/2025 11:40 CDT HISTORY: 24 years old Female with cp and palpitations TECHNIQUE: Two view(s) of the chest. COMPARISON: None available. FINDINGS: LUNGS/ PLEURA: No focal consolidation. No appreciable pneumothorax or large pleural effusion. HEART/ MEDIASTINUM: Heart appears normal in size. BONES: No acute osseous abnormality. OTHER: Visualized upper abdomen is unremarkable. IMPRESSION: No acute process. Reviewed, dictated and finalized at location A. IMPRESSION: No acute process.
--- NOTE | 2025-03-03 11:13 | ECG_ITS ---
Test Date: 2025-03-03 11:18:57 Measurements Intervals Sandy Rate: 110 P: 76 AL: 128 QRS: 80 QRSD: 81 T: 18 QT: 303 QTc: 410 Interpretive Statements SINUS TACHYCARDIA RIGHT ATRIAL ENLARGEMENT LEFT ATRIAL ENLARGEMENT POSSIBLE RIGHT VENTRICULAR CONDUCTION DELAY MINIMAL Q WAVES- ANTEROLAT/INF LEADS NONSPECIFIC ST & T-WAVE ABNORMALITY- ANTEROLAT/INF LEADS BASELINE ARTIFACT- I, II, III, AVR, AVL, AVF ABNORMAL ECG No previous ECG available for comparison Electronically Signed On 03-03-2025 11:46:20 CDT by Elliott Sen D.O.
[2025-03-03 11:31] VITALS: BP 137/92; PULSE 119; RESP 20; TEMP 37; O2SAT 99
[2025-03-03 11:38] LABS: Basophils Percent Auto 0.4 % (0.2-1.2); Eosinophils Absolute Auto 0.1 K/mm3 (0-0.3); Eosinophils Percent Auto 1.1 % (0-4.4); Hemoglobin 14.9 g/dL (12.0-15.0); Immature Granulocyte Absolute 0.02 K/mm3 (0.00-0.031); Immature Granulocyte Percent A 0.3 % (0-0.5); Lymphocytes Percent Auto 23.9 % (18.3-44.2); Mean Corpuscular HGB Conc 34.7 g/dl (32-36); Mean Corpuscular Hemoglobin 30.3 pg (26-34); Mean Corpuscular Volume 87.4 fl (80-100); Mean Platelet Volume 9.8 fl (7.4-10.4); Monocytes Absolute Auto 0.6 K/mm3 (0.1-0.6); Monocytes Percent Auto 8.5 % (2.6-8.5); Neutrophils Percent Auto 65.8 % (45.5-73.1); Platelet Count Result 290 k/mm3 (150-375); Red Blood Count 4.92 M/mm3 (4.2-5.4); Red Cell Distribution Width 12.3 % (11.5-14.5); White Blood Count 7.5 K/mm3 (4.5-10.0)
[2025-03-03 11:47] LABS: Alanine Aminotransferase 19 U/L (6-35); Albumin Level 5.4 g/dL (3.5-5.1); Alkaline Phosphatase 39 U/L (38-126); Anion Gap 13 mmol/L (4-12); Aspartate Amino Transferase 25 U/L (14-36); Bilirubin,Total 0.7 mg/dL (0.2-1.3); Blood Urea Nitrogen 13 mg/dL (7-17); Calcium 9.9 mg/dL (8.4-10.2); Carbon Dioxide 24 mmol/L (22-30); Chloride 103 mmol/L (98-107); Estimated CRCL calculation 78 ml/min; Estimated Glomerular Filt Rate > 60; Glucose 98 mg/dL (65-110); Lipase 48 U/L (23-300); Sodium 140 mmol/L (137-145); Total Protein 8.5 g/dL (6.3-8.2)
[2025-03-03 11:50] LABS: Partial Thromboplastin Time 26.2 Seconds (22.3-36.8); Prothrombin Time 13.3 Seconds (11.1-14.7)
[2025-03-03 12:00] LABS: Troponin I < 0.012 ng/mL (0.000-0.034)
--- NOTE | 2025-03-03 13:17 | ED.CHESTPAIN ---
HPI - Chest Pain General Chief Complaint: Chest Pain Stated Complaint: palpitations and CP Time Seen by Provider: 03/03/25 13:24 History of Present Illness HPI narrative: 24 y/o F with reported hx of IBS and anxiety presents to the ED for chest pain and palpitations for 1 month. Pt started wearing her fit bit 1 week ago and noticed her heart rate has been elevated which has been causing her anxiety. She is also reporting a dull left sided chest pain x1 month that is worse with palpation. She states the area feels sore. Pt states she believes all of her sx are due to anxiety/PTSD and googling about her health. She takyes amitryptiline for IBS which she has been compliant with. She denies abdominal pain, cough, congestions, hemoptysis, hx of VTE, recent surgeries or hospitalizations, use of hormones. Related Data Home Medications ?Medication ?Instructions ?Recorded ?Confirmed ?Last Taken ?Type multivitamin 1 tablet PO DAILY 05/25/22 01/07/25 Unknown History lactobacillus combination no.4 3 3,000 mmu cells PO DAILY 12/17/24 01/07/25 Unknown History billion cell capsule (Probiotic) Allergies Allergy/AdvReac Type Severity Reaction Status Date / Time No Known Allergies Allergy Verified 03/03/25 11:33 Review of Systems Review of Systems: All systems reviewed & are unremarkable except as noted in HPI and below PMFSH Past Medical History Medical History Anemia Social History Social History Smoking status: Never smoker Alcohol intake: never Substance use: never Substance use type: does not use Living arrangements: with family Spiritual care concerns: No Exam Narrative: GENERAL: Anxious-appearing, tearful, well-nourished, HEAD: Normocephalic, atraumatic. EYES: PERRLA and EOMI. ENT: Nares clear, no rhinorrhea or epistaxis. Mucous membranes moist. NECK: Supple. CHEST: Clear to auscultation. No respiratory distress. HEART: Regular rhythm, tachycardic. No murmur heard. Normal peripheral pulses. ABDOMEN: Soft, nontender, nondistended, normal active bowel sounds. EXTREMITIES: Normal range of motion. No edema. SKIN: Warm, dry, no rash. NEURO: No focal deficits. Alert and oriented x3 Course Vital Signs Vital signs: Vital Signs Temperature 98.6 F 03/03/25 11:31 Pulse Rate 119 H 03/03/25 11:31 Respiratory Rate 20 03/03/25 11:31 Blood Pressure 137/92 H 03/03/25 11:31 Pulse Oximetry 99 03/03/25 11:31 Oxygen Delivery Room Air 03/03/25 11:31 Temperature 98.6 F 03/03/25 11:31 Pulse Rate 119 H 03/03/25 11:31 Respiratory Rate 20 03/03/25 11:31 Blood Pressure 137/92 H 03/03/25 11:31 Pulse Oximetry 99 03/03/25 11:31 Oxygen Delivery Room Air 03/03/25 11:31 MDM - Chest Pain MDM Narrative Medical decision making narrative: 24-year-old female with history of anxiety and IBS presents to emergency department for chest pain and palpitations for the past month. See HPI for further history. Vitals with tachycardia 119. Patient is very anxious appearing and tearful on evaluation. She does believe that her symptoms are due to anxiety. EKG shows sinus tachycardia with a rate of 110, normal MA interval, normal QRS duration normal QTC, ischemic changes. Troponin is undetectable. D-dimer is within normal limits, wells score is low risk. Lipase is normal. CBC shows no leukocytosis or anemia. Chemistries are unremarkable. Chest x-ray shows no acute cardiopulmonary findings. Patient updated on results. Her long discussion with the patient regarding her symptoms and she again is reiterating that she was her symptoms are due to anxiety which I feel is consistent with her presentation. On re-evaluation she does clinically look improved and states she feels much better and reassured. She was given Ativan for anxiety her heart rate did improve, however still remained somewhat tachycardic. I did offer to give her IV fluids for the tachycardia however she politely declined and states she will hydrate well at home. She is tolerating p.o. intake in the ED. I advised to follow-up closely with PCP and discussed strict ED return precautions. She is agreeable with the plan verbalized understanding. Discharged in stable condition. Lab Data 03/03/25 11:29 03/03/25 11:29 Labs: Lab Results 06/23/25 Range/Units 11:29 WBC 7.5 (4.5-10.0) K/mm3 RBC 4.92 (4.2-5.4) M/mm3 Hgb 14.9 (12.0-15.0) g/dL Hct 43.0 (37.0-47.0) % MCV 87.4 (80-100) fl MCH 30.3 (26-34) pg MCHC 34.7 (32-36) g/dl RDW 12.3 (11.5-14.5) % Plt Count 290 (150-375) k/mm3 MPV 9.8 (7.4-10.4) fl Immature Gran % (Auto) 0.3 (0-0.5) % Neut % (Auto) 65.8 (45.5-73.1) % Lymph % (Auto) 23.9 (18.3-44.2) % [place] % (Auto) 8.5 (2.6-8.5) % Eos % (Auto) 1.1 (0-4.4) % Baso % (Auto) 0.4 (0.2-1.2) % Lymph # (Auto) 1.80 (0.9-3.2) K/mm3 [place] # (Auto) 0.6 (0.1-0.6) K/mm3 Eos # (Auto) 0.1 (0-0.3) K/mm3 Baso # (Auto) 0.0 (0.0-0.1) K/mm3 Abs Immat Gran (auto) 0.02 (0.00-0.031) K/mm3 Absolute Neuts (auto) 5.0 (1.3-6.7) K/mm3 Absolute Nucleated RBC 0.000 (0.0-0.012) K/mm3 Nucleated RBC % 0.0 (0.0-0.2) % PT 13.3 (11.1-14.7) Seconds INR 1.0 APTT 26.2 (22.3-36.8) Seconds D-Dimer 0.30 (<0.48) ug/mL Sodium 140 (137-145) mmol/L Potassium 4.0 (3.4-5.0) mmol/L Chloride 103 (98-107) mmol/L Carbon Dioxide 24 (22-30) mmol/L Anion Gap 13 H (4-12) mmol/L BUN 13 (7-17) mg/dL Creatinine 0.81 (0.7-1.0) mg/dL Estim Creat Clear Calc 78 ml/min Estimated GFR > 60 (59 - ) Glucose 98 (65-110) mg/dL Calcium 9.9 (8.4-10.2) mg/dL Total Bilirubin 0.7 (0.2-1.3) mg/dL AST 25 (14-36) U/L ALT 19 (6-35) U/L Alkaline Phosphatase 39 (38-126) U/L Troponin I < 0.012 (0.000-0.034) ng/mL Total Protein 8.5 H (6.3-8.2) g/dL Albumin 5.4 H (3.5-5.1) g/dL Lipase 48 (23-300) U/L Discharge Plan Discharge Clinical Impression: Anxiety, Atypical chest pain Patient Disposition: Home Condition: Stable Instructions: Antibiotic Form, Anxiety (ED) Additional Instructions: Please make sure to drink plenty of fluids and take hydroxyzine as needed for anxiety. Follow-up closely with primary care provider. Return to the emergency department if you develop fever, worsening or changing pain, headedness or loss of consciousness, you are unable to tolerate food or fluids, or other concerning symptoms. Patient Language: Lithuanian Prescriptions: New hydroxyzine pamoate 50 mg capsule 50 mg PO TID PRN (Reason: anxiety) Qty: 20 0RF No Action multivitamin Tablet 1 tablet PO DAILY amitriptyline 10 mg tablet 10 mg PO QHS Qty: 90 3RF Probiotic 3 billion cell capsule 3,000 mmu cells PO DAILY Rx Instructions: administer with a meal dicyclomine 10 mg capsule 10 mg PO QID Qty: 120 1RF Follow-up/Referrals: PHYSICIAN,NUCLEAR TEST TECHNICIAN [Non-Staff] - Payam Montaño MD [Physician] -
--- NOTE | 2025-03-03 13:18 | PC.NURSE ---
Pt. pulled into triage room to receive MSE.
[2025-03-03] MEDS: LORazepam (*CRX) 0.5 MG TABLET PO (14:21)
[2025-03-03 14:22] VITALS: BP 124/84; PULSE 109; RESP 22; O2SAT 98
[2025-03-03 14:33] VITALS: O2SAT 98
[2025-03-03 14:38] VITALS: TEMP 36.7
== END 2025-03-03 14:39 | disposition home or self-care (01) ==
PROVIDERS: Student in an Organized Health Care Education/Training Program; Emergency Provider Physician Assistant
DX: F41.9 Anxiety disorder, unspecified (principal); R07.89 Other chest pain
CPT/HCPCS: 36415; 71046; 80053; 83690; 84484; 85025; 85380; 85610; 85730; 93005; 99284; A9270

== ENCOUNTER 2025-06-27 08:39 | Outpatient (CLI) | payer OTHER, SELFPAY ==
--- NOTE | ~2025-06-27 | MR_ITS ---
EXAMINATION: MR pelvis wo/w con DATE: 06/27/2025 09:48 INDICATION: Adnexal mass TECHNIQUE: Magnetic resonance imaging (MRI) of the pelvis was performed without and with 10 mL Multihance intravenous contrast. Full-field sequences of the pelvis included axial and coronal T2-weighted SS FSE, coronal 2D FIESTA, axial T1-weighted FSPGR, axial dual-echo T1-weighted FSPGR and axial T1 weighted LAVA. Small field of view sequences included axial, sagittal and coronal T2-weighted FSE centered on the uterus and adnexa. Postcontrast sequences included a time course axial T1-weighted LAVA with full-field of view of the pelvis. COMPARISON: CT dated 02/12/2025 FINDINGS: There are 3 nabothian cysts at the cervix measuring up to 8mm. Uterus is anteverted and retroflexed with normal endometrial complex measuring 6 mm in thickness. There are numerous T2 hyperintense nonenhancing cysts/follicles in the right ovary. 1.8 cm ruptured corpus luteum cyst in the right ovary with discontinuous peripheral enhancing rim. The left ovary is not visualized. Bladder is normal. Small amount of likely physiologic free fluid in the cul-de-sac... Visualized portions of bowels are unremarkable. Bones are unremarkable with normal marrow signal throughout. IMPRESSION: 1. Multiple cysts/follicles in the right ovary including a 1.8 cm likely ruptured corpus luteum cyst. No left ovary identified. 2. Small amount of likely physiologic free fluid in the cul-de-sac. No other acute intra-abdominal/pelvic process. Reviewed, dictated and finalized at location A. IMPRESSION: 1. Multiple cysts/follicles in the right ovary including a 1.8 cm likely ruptur ed corpus luteum cyst. No left ovary identified. 2. Small amount of likely physiologic free fluid in the cul-de-sac. No other ac susu intra-abdominal/pelvic process.
--- OUTSIDE RECORDS SUMMARY | 2025-06-27 08:49 | XMS_ITS | Clinical Summary ---
Author Organization [facility] Address [address] [place] [address] Care Team Providers Care Traffic I Manager Name Role Phone Haroon Holcomb MD Primary Care Provider Unavail able Source Comments [facility],non-owned Affiliates and Associated Physician Practices is amultiple site organization consisting of ambulatory clinics and hospital sitesin [place], [place], [place] and [place]. This disclosure is being madepursuant to the Care Everywhere program and may not contain all information available regarding this patient. Last updated 18.[facility] [employer] Allergies No known active allergies Medications * [...] be different from the original. Local Lab- [facility] Fax- [phone] Problem Noted Date Diagnosed Date Back pain [...] on file Legal Sex Female 10:34 PM NAME PLATE STAMPER Gender Identity Not on file Sexual Orientation Not on file Last Filed Vital Signs Vital Sign Reading Time Taken Comments Blood Pressure 107/57 08/09/2018 9:50 AM NAME PLATE STAMPER Pulse 64 08/09/2018 9:50 AM NAME PLATE STAMPER Temperature 36.8 C (98.3 F) 08/09/2018 9:50 AM NAME PLATE STAMPER Respiratory Rate 16 08/09/2018 9:50 AM NAME PLATE STAMPER Oxygen Saturation 100% 08/09/2018 9:50 AM NAME PLATE STAMPER ra Inhaled Oxygen Concentration - - Weight 56.1 kg (123 lb 10.9 oz) 08/09/2018 9:50 AM NAME PLATE STAMPER Height 166.4 cm (5' 5.51) 08/09/2018 9:50 AM CS T Body Mass Index 20.26 08/09/2018 9:50 AM NAME PLATE STAMPER Plan of Treatment Health Maintenance Due Date Last Done Comments HIV SCREENING 2017 HPV VACCINE (1 - 3-dose series) 2017 MENINGOCOCCAL (Group B) VACC INE SHARED DECISION-MAKING (1 of 2 - Standard) 2018 HEPATITIS C SCREENING 06/05/2020 CHLAMYDIA/GONORRHEA SCREENING 03/03/2021 03/03/2020 DTAP/TDAP/TD VACCINES (1 - Tdap) 2021 HEPATITIS B VACCINE (1 of 3 - 19+ 3-dose series) 2021 DEPRESSION SCREENING 09/11/2024 COVID-19 VACCINE (1 - 2023-2 5 season) 2025 INFLUENZA VACCINE (#1) 2025 ZOSTER VACCINE (1 of 2) 2052 HIB VACCINE Aged Out No longer eligi ble based on patient's age to complete this topic MENINGOCOCCAL GROUPS A/C/Y/W VACCINE Aged Out No longer eligible b ased on patient's age to complete this topic PNEUMOCOCCAL VACCINE Aged Out No long er eligible based on patient's age to complete this topic Insurance [facility] Care Address: [address] [address] [place] [address] Advance Directives * Full Code (Latest Code Status on File) Date Activated Date Inactivated Comments 01/03/2018 4:34 PM 01/05/2018 4:01 PM * Full Code Date Activated Date Inactivated Comments 12/27/2017 6:00 PM 12/31/2017 2:19 PM Care Teams Traffic I Manager Relationship Specialty Start Date End Date Haroon Holcomb MD NEED INFORMATION UPDATED PCP - General 05/09/22
--- OUTSIDE RECORDS SUMMARY | 2025-06-27 08:49 | XMS_ITS | Clinical Summary ---
Author Organization [facility] Address [address] [place] [address] Care Team Providers Care End Worker Name Role Phone None, Provider MD [...] 10:44 AM CDT Height 167.6 cm (5' 6) 05/05/2022 10:44 AM CDT Body Mass Index 21.79 05/05/2022 10:44 AM CDT Plan of Treatment Upcoming Encounters Date Type Department Care Team (Late st Contact Info) Description 07/08/2025 8:[address] [facility] [address] [place] [address] Edwina Morris MD [address] [place] [address] Health Maintenance Due Date Last Done Comments Cervical Cancer Screening Pap Smear (Age 21 to 29) Every 3 Years 2002 Cervical Cancer Screening 2002 Annual Physical 2005 Meningococcal B Vaccine (1 of 2 - Standard) 2018 Hepatitis C 2020 DTaP, Tdap and Td Vaccines (7 - Td or Tdap) 06/07/2024 06/07/2014, 05/30/2007, 09/22/2003, Additional history exists COVID-19 Vaccine ( - season) 2025 07/07/2021, 06/16/2021 Influenza Adult (#1) 2025 08/18/2010, 06/17/2009, 07/02/2004, Additional history exists Hepatitis B Vaccines Completed [...] patient's age to complete this topic Insurance [employer] Care Teams End Worker Relationship Specialty Start Date End Date None, Provider, PCP - General 12/07/21
--- OUTSIDE RECORDS SUMMARY | 2025-06-27 08:49 | XMS_ITS | Encounter Summary ---
Author Organization [facility] Address [facility] [place] [address] Care Team Providers Care [employer]eer [employer] Name Role Phone Eduin Land CHEMICAL LABORATORY TECHNICIAN Primary Care Provider Unavail able Eduin Land CHEMICAL LABORATORY TECHNICIAN Primary Care Provider Unavail able Eduin Land NP Primary Care Provider Unavail able Ayaz Velazquez MD Primary Care Provider [phone] Fede Wagner MD Primary Care Provider [phone] None, Provider MD Primary Care Provider Unavaila ble Encounter Details Date Type Department Care Team (Late st Contact Info) Description 01/09/2014 Abstract [facility] CONVERSION [address] [place] [address] , Generic Conversion, Social History Tobacco Use Types Packs/Day Years Used Date Smoking Tobacco: Never Assessed Comments Unknown Sex and Gender Information Value Date Recorded Sex Assigned at Not on file Legal Sex Female 8:11 PM CDT Gender Identity Not on file Sexual Orientation Not on file documented as of this encounter Plan of Treatment Upcoming Encounters Date Type Department Care Team (Late st Contact Info) Description 07/08/2025 8:00 AM CDT Appointment [facility] [address] [place], [place] [id number] Edwina Morris MD [address] [place] [address] documented as of this encounter Visit Diagnoses Not on filedocumented in this encounter Additional Health Concerns Infection Onset Date Last Indicated Resolved Time COVID-19 Rule Out 07/22/2021 07/22/2021 07/22/2021 1:09 PM SERVICE CLEANER COVID-19 Rule Out 07/29/2021 07/29/2021 07/29/2021 2:01 PM SERVICE CLEANER COVID-19 Rule Out 08/16/2021 08/16/2021 08/16/2021 2:12 PM SERVICE CLEANER COVID-19 Rule Out 09/19/2021 09/19/2021 09/19/2021 9:37 AM SERVICE CLEANER COVID-19 Rule Out 09/20/2021 09/20/2021 09/21/2021 3:44 AM SERVICE CLEANER COVID-19 Confirmed 09/20/2021 09/20/2021 12:34 AM SERVICE CLEANER documented as of this encounter Care Teams Auctioneer [employer]obile Relationship Specialty Start Date End Date Eduin Land CHEMICAL LABORATORY TECHNICIAN PCP - General 04/03/15 05/02/21 Eduin Land, CHEMICAL LABORATORY TECHNICIAN PCP - General 03/12/15 04/02/15 Eduin Land CHEMICAL LABORATORY TECHNICIAN PCP - General 02/26/15 03/11/15 Ayaz Velazquez MD [address] [place], [place] [address] PCP - General PEDIATRICS 05/03/21 09/18/21 Fede Wagner MD [address] [place] [address] PCP - General FAMILY PRACTICE 09/19/21 12/06/21 None, MD Bahman PCP - General 12/07/21 documented as of this encounter
== END 2025-06-27 08:40 | disposition home or self-care (01) ==
PROVIDERS: Visit Provider Obstetrics & Gynecology
DX: N94.89 Other specified conditions associated with female genital organs and menstrual cycle (principal)
CPT/HCPCS: 72197; A9577